=== PATIENT | male | born 1995 | race Caucasian/White ===

== ENCOUNTER 2021-09-23 12:16 | Emergency (ER) | payer OTHER ==
[~2021-09-23] VITALS: Ht 185.4 cm; Wt 124.5 kg
[2021-09-23 12:27] VITALS: BP 127/80
[2021-09-23] MEDS ORDERED: PENICILLIN G BENZATHINE L-A 1.2 MU/2 ML SYR IM ONE (13:00)
[2021-09-23] MEDS ORDERED: KETOROLAC 30 MG/ML VIAL IM ONE (13:00)
[2021-09-23] MEDS ORDERED: NAPR-54 PO (13:01)
[2021-09-23] MEDS ORDERED: PRED20TA5 PO (13:01)
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
[2021-09-23 13:28] VITALS: BP 127/80
--- NOTE | 2021-09-23 13:29 | NUR ---
Patient discharged with v/s stable. Written and verbal after care instructions given and explained. Patient alert, oriented and verbalized understanding of instructions. Ambulatory with steady gait. All questions addressed prior to discharge. ID band removed. Patient advised to follow up with PMD. Rx of NAPROXEN AND PREDNISONE given. Patient educated on indication of medication including possible reaction and side effects. Opportunity to ask questions provided and answered.
== END 2021-09-23 13:29 | disposition home or self-care (01) ==
LOC: MED 12:16
DX: J02.9 Acute pharyngitis, unspecified (principal); I10 Essential (primary) hypertension
CPT/HCPCS: 96372; 99284; J0561; J1885

== ENCOUNTER 2021-09-25 09:23 | Emergency (ER) | payer OTHER ==
[~2021-09-25] VITALS: Ht 185.4 cm; Wt 121.6 kg
[~2021-09-25 09:23] MED LIST: NAPR-54 PO; PRED20TA5 PO
--- NOTE | 2021-09-25 09:35 | NUR ---
PT AMB TO BED 3.
[2021-09-25 09:37] VITALS: BP 130/86
--- NOTE | 2021-09-25 09:50 | NUR ---
DR. BRAN AT BEDSIDE EVALUATING PATIENT.
[2021-09-25] MEDS ORDERED: DEXAMETHASONE 10 MG/ML VIAL PO ONE (09:55)
[2021-09-25] MEDS ORDERED: ACET-5629 PO (10:12)
--- NOTE | 2021-09-25 10:27 | NUR ---
STREP SPECIMEN OBTAINED HANDED TO CPT LLOYD AT BEDSIDE.
--- NOTE | 2021-09-25 10:42 | NUR ---
Patient discharged with v/s stable. Written and verbal after care instructions given and explained. Patient alert, oriented and verbalized understanding of instructions. Ambulatory with steady gait. All questions addressed prior to discharge. ID band removed. Patient advised to follow up with PMD. Rx of PERCOCET 5-325MG given. Patient educated on indication of medication including possible reaction and side effects. Opportunity to ask questions provided and answered.
[2021-09-25 10:53] VITALS: BP 122/75
== END 2021-09-25 10:42 | disposition home or self-care (01) ==
LOC: MED 09:23
DX: J02.9 Acute pharyngitis, unspecified (principal); I10 Essential (primary) hypertension; F17.210 Nicotine dependence, cigarettes, uncomplicated; F12.90 Cannabis use, unspecified, uncomplicated; Z79.899 Other long term (current) drug therapy; Z79.1 Long term (current) use of non-steroidal anti-inflammatories (NSAID); Z79.891 Long term (current) use of opiate analgesic
CPT/HCPCS: 87081; 99283; J1100

== ENCOUNTER 2022-06-09 15:33 | Emergency (ER) | payer OTHER ==
[~2022-06-09] VITALS: Ht 182.9 cm; Wt 130.6 kg
[~2022-06-09 15:33] MED LIST changes: +ACET-5629 PO
[2022-06-09 15:37] VITALS: BP 107/74
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
--- NOTE | 2022-06-09 15:41 | NUR ---
Patient ambulated to bed 06 with steady/even gait.
--- NOTE | 2022-06-09 15:48 | NUR ---
Dr. Alonso evaluating pt at bedside
[2022-06-09] MEDS ORDERED: KETOROLAC 60 MG/2 ML VIAL IM ONE (16:00)
--- NOTE | 2022-06-09 16:03 | NUR ---
Pt RAD by W/C
--- NOTE | 2022-06-09 16:28 | NUR ---
Pt returned from RAD via W/C
--- NOTE | 2022-06-09 16:35 | NUR ---
Patient states + relief to pain; 6/10 at this time.
[2022-06-09] MEDS ORDERED: ACET-8905 PO (16:53)
[2022-06-09] MEDS ORDERED: LID5T TP (16:53)
[2022-06-09] MEDS ORDERED: IBUP-2213 PO (16:53)
--- NOTE | 2022-06-09 17:06 | NUR ---
Patient discharged with v/s stable. Written and verbal after care instructions given and explained for Acute Back Pain, Adult. Patient alert, oriented and verbalized understanding of instructions. Ambulatory with steady gait. All questions addressed prior to discharge. ID band removed. Patient advised to follow up with PMD. Rx of Lidoerm 5% Patch, Ibuprofen, [place]/Tylenol given. Patient educated on indication of medication including possible reaction and side effects. Opportunity to ask questions provided and answered. Work note provided with copies of RAD results & RAD imaging disk.
== END 2022-06-09 17:06 | disposition home or self-care (01) ==
LOC: MED 15:33
DX: S39.012A Strain of muscle, fascia and tendon of lower back, initial encounter (principal); V49.88XA Car occupant (driver) (passenger) injured in other specified transport accidents, initial encounter; Y93.89 Activity, other specified; Y92.89 Other specified places as the place of occurrence of the external cause; Y99.8 Other external cause status
CPT/HCPCS: 71045; 72100; 96372; 99284; J1885